=== PATIENT | male | born 1975 | race Caucasian/White ===

== ENCOUNTER 2018-03-20 01:02 | Emergency (ER) | payer OTHER ==
[~2018-03-20] VITALS: Ht 167.6 cm; Wt 104.3 kg
[2018-03-20] MEDS ORDERED: LISINOPRIL2.5 M1 PO (01:14)
[2018-03-20] MEDS ORDERED: CARVEDILOL3.125 MG PO (01:15)
[2018-03-20] MEDS ORDERED: ATORVASTATIN CA40 MG PO (01:15)
[2018-03-20 01:32] LABS: ABSOLUTE LYMPHOCYTES 4.3 thou/uL (0.8-5.3); LYMPHOCYTES 33.4 %; MCHC 34.1 g/dL (28.0-37.0)
[2018-03-20 01:34] LABS: ABSOLUTE BASOPHILS 0.1 thou/uL (0.0-0.2); ABSOLUTE EOSINOPHILS 0.2 thou/uL (0.0-0.7); ABSOLUTE MONOCYTES 1.3 thou/uL (0.0-1.2); BASOPHILS 0.7 %; EOSINOPHILS 1.7 %; HEMATOCRIT 48.5 % (42.0-52.0); HEMOGLOBIN 16.5 gm/dL (14.0-18.0); MCV 88.1 fL (80.0-100.0); MONOCYTES 10.1 %; MPV 11.7 fl. (7.2-11.1); NUCLEATED RBCS 0 /100WBC; PLATELET COUNT* 140 thou/uL (150-400); POLYS 54.1 %; RBC 5.51 mil/uL (4.50-6.00); RDW-CV 13.5 % (10.5-14.5); WBC 12.9 thou/uL (4.0-11.0)
[2018-03-20 01:40] LABS: CREATININE 0.9 mg/dL (0.6-1.3); POTASSIUM 3.8 mmol/L (3.5-5.1)
[2018-03-20 01:44] LABS: TOTAL BILIRUBIN 0.9 mg/dL (<0.1-1.0); TOTAL PROTEIN 7.4 g/dL (6.4-8.2)
[2018-03-20] MEDS ORDERED: ZOFRAN ODT4 MG PO (03:24)
[2018-03-20] MEDS ORDERED: FLOMAX0.4 MG PO (03:24)
[2018-03-20] MEDS ORDERED: PERCOCET 7.5-31 EACH PO (03:24)
[2018-03-20 03:51] VITALS: BP 99/60
== END 2018-03-20 03:52 | disposition home or self-care (01) ==
LOC: M.ERS 01:02
PROVIDERS: Emergency Medicine
DX: N20.0 Calculus of kidney (principal); Z88.1 Allergy status to other antibiotic agents

== ENCOUNTER 2019-04-01 01:15 | Emergency (ER) | payer OTHER ==
[~2019-04-01] VITALS: Ht 167.6 cm; Wt 108.9 kg
[~2019-04-01 01:15] MED LIST: ATORVASTATIN CA40 MG PO; CARVEDILOL3.125 MG PO; FLOMAX0.4 MG PO; LISINOPRIL2.5 M1 PO; PERCOCET 7.5-31 EACH PO; ZOFRAN ODT4 MG PO
[2019-04-01 01:48] LABS: URINE BILIRUBIN NEGATIVE (Negative); URINE BLOOD TRACE (Negative); URINE CLARITY CLEAR; URINE COLOR YELLOW; URINE GLUCOSE-RANDOM NEGATIVE (Negative); URINE KETONES NEGATIVE (Negative); URINE LEUKOCYTES-REFLEX NEGATIVE (Negative); URINE NITRITE-REFLEX NEGATIVE (Negative); URINE PROTEIN NEGATIVE (Negative); URINE UROBILINOGEN 0.2 E.U./dl (0.2-1.0)
[2019-04-01 02:25] LABS: CREATININE 0.9 mg/dL (0.6-1.3); POTASSIUM 3.9 mmol/L (3.5-5.1)
[2019-04-01] MEDS ORDERED: IBUPROFEN 800800 M1 PO (02:59)
[2019-04-01] MEDS ORDERED: ZOFRAN ODT4 MG DISSOLVE (02:59)
[2019-04-01] MEDS ORDERED: FLOMAX0.4 MG PO (02:59)
[2019-04-01] MEDS ORDERED: NORCO 5-325 TA1 EAC1 PO (02:59)
[2019-04-01 03:44] VITALS: BP 131/87
== END 2019-04-01 03:47 | disposition home or self-care (01) ==
LOC: M.ERS 01:15
PROVIDERS: Emergency Medicine Emergency Medical Services
DX: N20.0 Calculus of kidney (principal); I25.2 Old myocardial infarction; F10.10 Alcohol abuse, uncomplicated; Z88.2 Allergy status to sulfonamides